=== PATIENT | male | born 1940 | race Caucasian/White ===

== ENCOUNTER 2017-08-22 08:19 | Outpatient (RCR) | payer MEDICARE, SELFPAY ==
[2017-08-22 09:30] VITALS: BP 145/73; PULSE 76; RESP 16; TEMP 36.1; BMI 30.4
--- NOTE | 2017-08-22 11:02 | PCM.WC.HP ---
(1) Decubitus ulcer of left buttock, stage 3 Status: Acute Current Visit: Yes Code(s): L89.323 - Pressure ulcer of left buttock, stage 3 (2) Anemia Status: Acute Current Visit: Yes Code(s): D64.9 - Anemia, unspecified (3) Diabetes type 2, uncontrolled Status: Acute Current Visit: Yes Code(s): E11.65 - Type 2 diabetes mellitus with hyperglycemia (4) Chronic diarrhea Status: Acute Current Visit: Yes Code(s): K52.9 - Noninfective gastroenteritis and colitis, unspecified (5) COPD (chronic obstructive pulmonary disease) Status: Acute Current Visit: Yes Code(s): J44.9 - Chronic obstructive pulmonary disease, unspecified (6) Dementia Status: Acute Current Visit: Yes Code(s): F03.90 - Unspecified dementia without behavioral disturbance History of Present Illness Date of Service: 08/22/17 Chief Complaint: Left buttocks ulcer History of Wound: The 7-year-old white male very hard of hearing diabetic with chronic diarrhea and incontinence developed a decubitus ulcer on his left buttocks cheek. Patient has been using a topical prescription antibiotic. Patient states 6 months it has been going on but saw the nurse practitioner primary care doctor 5 weeks ago. They have been trying for 3 months to get in to see someone that could take care of this ulcer. Patient walks but sits in his chair most of the day has a gel cushion but does not like it and is obese. Family prefers home health care if dressings need to be done daily. 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 anemia [place] with stents Allergies/Adverse Reactions: Allergies Penicillins [PCN] Allergy (Verified 08/22/17 09:46) Unknown Sulfa (Sulfonamide Antibiotics) Allergy (Verified 08/22/17 09:46) Unknown Home Medications: Ambulatory Orders Medication Instructions Recorded Carbidopa/Levodopa 25/100 [Sinemet] 1 tablet PO TIDAC 08/22/17 Clopidogrel Bisulfate [Plavix] 75 mg PO DAILY 08/22/17 Duloxetine HCl 20 mg PO BID 08/22/17 Furosemide [Lasix] 20 mg PO BIDLX 08/22/17 Glimepiride 1 mg PO BID 08/22/17 Insulin Glargine [Lantus (BKC)] 34 units SC QHS 08/22/17 Lisinopril [Zestril] 5 mg PO DAILY 08/22/17 Magnesium Oxide [Magnesium] 400 mg PO BID 08/22/17 Montelukast [Singulair] 10 mg PO DAILY 08/22/17 [place]-3 Fatty Acids/Fish Oil 1 each PO DAILY 08/22/17 [[place] 3 Fish Oil Softgel] Omeprazole [Prilosec] 20 mg PO DAILY 08/22/17 Simvastatin [Zocor] 40 mg PO QHS 08/22/17 Tamsulosin HCl [Flomax] 0.4 mg PO DAILY 08/22/17 Lives: Spouse/ Significant Other Smoking Status: Light Smoker (<10/day) Alcohol: Occasional Drugs: None Review of Systems Constitutional: Denies: Chills, Fever Eyes: Denies: Blurred vision, Drainage, Pain HEENT: Denies: Difficulty Hearing, Difficulty Swallowing, Sore Throat, Visual Changes Cardiovascular: Denies: Chest Pain, Palpitations, Syncope Respiratory: Denies: Cough, Shortness of Breath Gastrointestinal: Reports: Diarrhea. Denies: Abdominal Pain, Nausea, Vomiting Genitourinary: Denies: Dysuria, Frequency Musculoskeletal: Denies: Joint Pain, Muscle pain Skin: Reports: Wounds - Buttocks ulcer. Denies: Jaundice, Rash Neurological: Denies: Balance problems, Change in Speech, Difficulty swallowing, Focal weakness Psychiatric: Denies: Anxiety, Depression Endocrine: Denies: Change in Body Habitus Hematologic/ Lymphatic: Denies: Adenopathy - Physical Exam Vital Signs Temp Pulse Resp BP 96.9 F L 76 16 145/73 H 08/22/17 09:30 08/22/17 09:30 08/22/17 09:30 08/22/17 09:30 General: Oriented x3, Cooperative, Well developed HEENT: Atraumatic, PERRLA Oral: Moist Mucosa Neck: Supple, No JVD Lungs: Clear to auscultation, Normal air movement Cardiovascular: Regular rate, Regular Rhythm Abdomen: Bowel Sounds Present, Soft, Non Tender, No Hepato-splenomegaly, Obese Extremities: No clubbing, No edema Skin: Ulcer/ Wound - Buttocks ulcer stage III Wound Measurements and Assessment WC - Nurse 1 - General Ulcer Measurement Start: 08/22/17 08:38 Freq: Status: Active Protocol: Activity Type Activity Date Activity User E-Sign Co-Sign Detail Recorded Client Recorded Date Recorded By Document 08/22/17 09:30 [facility] [id number] 08/22/17 09:44 [facility] 08/22/17 09:30 Wound Center Nurse 1 [Ulcer Assessment] #1- RT BUTTOCK -Combined with other wound No -Current Size (cm) - Length 1.3 -Current Size (cm) - Width 0.8 -Current Size (cm) - Depth 0.1 -Total Square Cm 1.04 -Date of Last Picture (Recall this 08/22/17 field) -Photo Taken Yes -Epithelialization None Present -Tunneling No -Undermining/Tunneling No -Circular Undermining No -Exudate Amt None Present (0 %) -Wound Margin Distinct, Outline Attached -Granulation Amt Small (1-33%) -Granulation Quality [place] -Slough/Fibrin Yes -Necrosis Amt Medium (34-66%) -Necrotic Tissue Type Adherent Slough -Structure Exposed None/Limited to Skin Breakdown -Texture (Bev-wound Skin Appearance) Scarring -Moisture (Bev-wound Skin Appearance Assessed ) -Color (Bev-wound Skin Appearance) Erythema -Temperature (Bev-wound Skin No Abnormality Appearance) (Pt Warm) -Tenderness on Palpation (Bev-wound Yes Skin Appearance) -Ulcer Cleansing Rinsed/ Irrigated with Saline -Foul Odor after Cleansing No -Anesthetic Used 5% Lidocaine Gel WC - Nurse 2 - General Ulcer CM Notes Start: 08/22/17 08:38 Freq: Status: Active Protocol: Activity Type Activity Date Activity User E-Sign Co-Sign Detail Recorded Client Recorded Date Recorded By Document 08/22/17 10:17 [id number] 08/22/17 10:20 DV 08/22/17 10:17 Wound Center Nurse 2 [Procedure/Treatment] -Time 10:18 -Correct Patient Yes -Correct Side, Site, Position Yes -Correct Procedure Yes -Procedure Performed Yes -Type of Procedure Debridement -Clinical Debridement Subcutaneous -Post Debridement Size (cm) - Length 1.3 -Post Debridement Size (cm) - Width 1.0 -Post Debridement Size (cm) - Depth 0.3 -Total Square Cm 1.30 -Wound/Ulcer Outcome Not Healed -Ulcer Cleansing Rinsed/ Irrigated with Saline -Foul Odor after Cleansing No -Bioengineered Tissue No -Bleeding Controlled with Pressure -Treatment Response Procedure Tolerated Well [See Physician Procedure note for Specifics] Pain Scale: 0-10 Numeric [Pain] -Is Patient Pain Free? Yes Musculoskeletal: No Tenderness to Palpation of Joints or Extremities Lymphatic: No Cervical, Supraclavicular, or Inguinal Adenopathy Neurological: Cranial nerves II-XII grossly intact, Neuro grossly intact Psych/Mental Status: Normal Affect, Appropriate, Alert and oriented to time, place, person, mood and affect Debridement Note Post-Debridement Measurements/Treatment WC - Nurse 2 - General Ulcer CM Notes Start: 08/22/17 08:38 Freq: Status: Active Protocol: Activity Type Activity Date Activity User E-Sign Co-Sign Detail Recorded Client Recorded Date Recorded By Document 08/22/17 10:17 DV [id number] 08/22/17 10:20 DV 08/22/17 10:17 Wound Center Nurse 2 #1- RT BUTTOCK -Time 10:18 -Correct Patient Yes -Correct Side, Site, Position Yes -Correct Procedure Yes -Procedure Performed Yes -Type of Procedure Debridement -Clinical Debridement Subcutaneous -Post Debridement Size (cm) - Length 1.3 -Post Debridement Size (cm) - Width 1.0 -Post Debridement Size (cm) - Depth 0.3 -Total Square Cm 1.30 -Wound/Ulcer Outcome Not Healed -Ulcer Cleansing Rinsed/ Irrigated with Saline -Foul Odor after Cleansing No -Bioengineered Tissue No -Bleeding Controlled with Pressure -Treatment Response Procedure Tolerated Well Pain Scale: 0-10 Numeric Is Patient Pain Free? Yes Wound debrided: Buttocks ulcer Laterality: Left Wound Grade/Stage: Stage III Type of Debridement: Excisional debridement Anesthesia Used: 5% Lidocaine Gel Depth: Down to and including healthy tissue, in the subcutaneous layer Percentage of wound debrided: 100 Instrument Used: 5mm curette Tissue Removed: Cough and fibrin Severity: Limited To Skin Breakdown Amount of bleeding with debridement: Mild Bleeding Controlled with: Compression and gauze Patient tolerated procedure well Assessment/Plan Cultures for aerobic and anaerobic lab cmp and pralbumin already had a cbc done Active Problems Decubitus ulcer of left buttock, stage 3 (Acute) Anemia (Acute) Diabetes type 2, uncontrolled (Acute) Chronic diarrhea (Acute) COPD (chronic obstructive pulmonary disease) (Acute) Dementia (Acute) Assessment: Decubitus ulcers stage III left buttocks. Healing wound. Chronic diarrhea. Diabetes type 2 uncontrolled. Anemia. malnutrition Plan: wash the buttocks area with hibiclens. apply aquacell silver to the wound base moisten then cover with guaze and tape qd. Will calll with the results of the labs drawn today. Will order Home health shelter to do this for the family. transfer of care to Dr Hankins for furthercare
--- NOTE | 2017-08-22 11:14 | HP.PCM_ITS ---
(1) Decubitus ulcer of left buttock, stage 3 Status: Acute Current Visit: Yes Code(s): L89.323 - Pressure ulcer of left buttock, stage 3 (2) Anemia Status: Acute Current Visit: Yes Code(s): D64.9 - Anemia, unspecified (3) Diabetes type 2, uncontrolled Status: Acute Current Visit: Yes Code(s): E11.65 - Type 2 diabetes mellitus with hyperglycemia (4) Chronic diarrhea Status: Acute Current Visit: Yes Code(s): K52.9 - Noninfective gastroenteritis and colitis, unspecified (5) COPD (chronic obstructive pulmonary disease) Status: Acute Current Visit: Yes Code(s): J44.9 - Chronic obstructive pulmonary disease, unspecified (6) Dementia Status: Acute Current Visit: Yes Code(s): F03.90 - Unspecified dementia without behavioral disturbance History of Present Illness Date of Service: 08/22/17 Chief Complaint: Left buttocks ulcer History of Wound: The 7-year-old white male very hard of hearing diabetic with chronic diarrhea and incontinence developed a decubitus ulcer on his left buttocks cheek. Patient has been using a topical prescription antibiotic. Patient states 6 months it has been going on but saw the nurse practitioner primary care doctor 5 weeks ago. They have been trying for 3 months to get in to see someone that could take care of this ulcer. Patient walks but sits in his chair most of the day has a gel cushion but does not like it and is obese. Family prefers home health care if dressings need to be done daily. 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 anemia [place] with stents Allergies/Adverse Reactions: Allergies Penicillins [PCN] Allergy (Verified 08/22/17 09:46) Unknown Sulfa (Sulfonamide Antibiotics) Allergy (Verified 08/22/17 09:46) Unknown Home Medications: Ambulatory Orders Medication Instructions Recorded Carbidopa/Levodopa 25/100 [Sinemet] 1 tablet PO TIDAC 08/22/17 Clopidogrel Bisulfate [Plavix] 75 mg PO DAILY 08/22/17 Duloxetine HCl 20 mg PO BID 08/22/17 Furosemide [Lasix] 20 mg PO BIDLX 08/22/17 Glimepiride 1 mg PO BID 08/22/17 Insulin Glargine [Lantus (BKC)] 34 units SC QHS 08/22/17 Lisinopril [Zestril] 5 mg PO DAILY 08/22/17 Magnesium Oxide [Magnesium] 400 mg PO BID 08/22/17 Montelukast [Singulair] 10 mg PO DAILY 08/22/17 [place]-3 Fatty Acids/Fish Oil 1 each PO DAILY 08/22/17 [[place] 3 Fish Oil Softgel] Omeprazole [Prilosec] 20 mg PO DAILY 08/22/17 Simvastatin [Zocor] 40 mg PO QHS 08/22/17 Tamsulosin HCl [Flomax] 0.4 mg PO DAILY 08/22/17 Lives: Spouse/ Significant Other Smoking Status: Light Smoker (<10/day) Alcohol: Occasional Drugs: None Review of Systems Constitutional: Denies: Chills, Fever Eyes: Denies: Blurred vision, Drainage, Pain HEENT: Denies: Difficulty Hearing, Difficulty Swallowing, Sore Throat, Visual Changes Cardiovascular: Denies: Chest Pain, Palpitations, Syncope Respiratory: Denies: Cough, Shortness of Breath Gastrointestinal: Reports: Diarrhea. Denies: Abdominal Pain, Nausea, Vomiting Genitourinary: Denies: Dysuria, Frequency Musculoskeletal: Denies: Joint Pain, Muscle pain Skin: Reports: Wounds - Buttocks ulcer. Denies: Jaundice, Rash Neurological: Denies: Balance problems, Change in Speech, Difficulty swallowing , Focal weakness Psychiatric: Denies: Anxiety, Depression Endocrine: Denies: Change in Body Habitus Hematologic/ Lymphatic: Denies: Adenopathy - Physical Exam Vital Signs Temp Pulse Resp BP 96.9 F L 76 16 145/73 H 08/22/17 09:30 08/22/17 09:30 08/22/17 09:30 08/22/17 09:30 General: Oriented x3, Cooperative, Well developed HEENT: Atraumatic, PERRLA Oral: Moist Mucosa Neck: Supple, No JVD Lungs: Clear to auscultation, Normal air movement Cardiovascular: Regular rate, Regular Rhythm Abdomen: Bowel Sounds Present, Soft, Non Tender, No Hepato-splenomegaly, Obese Extremities: No clubbing, No edema Skin: Ulcer/ Wound - Buttocks ulcer stage III Wound Measurements and Assessment WC - Nurse 1 - General Ulcer Measurement Start: 08/22/17 08:38 Freq: Status: Active Protocol: Activity Type Activity Date Activity User E-Sign Co-Sign Detail Recorded Client Recorded Date Recorded By Document 08/22/17 09:30 [facility] [id number] 08/22/17 09:44 [facility] 08/22/17 09:30 Wound Center Nurse 1 [Ulcer Assessment] #1- RT BUTTOCK -Combined with other wound No -Current Size (cm) - Length 1.3 -Current Size (cm) - Width 0.8 -Current Size (cm) - Depth 0.1 -Total Square Cm 1.04 -Date of Last Picture (Recall this 08/22/17 field) -Photo Taken Yes -Epithelialization None Present -Tunneling No -Undermining/Tunneling No -Circular Undermining No -Exudate Amt None Present (0 %) -Wound Margin Distinct, Outline Attached -Granulation Amt Small (1-33%) -Granulation Quality [place] -Slough/Fibrin Yes -Necrosis Amt Medium (34-66%) -Necrotic Tissue Type Adherent Slough -Structure Exposed None/Limited to Skin Breakdown -Texture (Bev-wound Skin Appearance) Scarring -Moisture (Bev-wound Skin Appearance Assessed ) -Color (Bev-wound Skin Appearance) Erythema -Temperature (Bev-wound Skin No Abnormality Appearance) (Pt Warm) -Tenderness on Palpation (Bev-wound Yes Skin Appearance) -Ulcer Cleansing Rinsed/ Irrigated with Saline -Foul Odor after Cleansing No -Anesthetic Used 5% Lidocaine Gel WC - Nurse 2 - General Ulcer CM Notes Start: 08/22/17 08:38 Freq: Status: Active Protocol: Activity Type Activity Date Activity User E-Sign Co-Sign Detail Recorded Client Recorded Date Recorded By Document 08/22/17 10:17 [id number] 08/22/17 10:20 DV 08/22/17 10:17 Wound Center Nurse 2 [Procedure/Treatment] -Time 10:18 -Correct Patient Yes -Correct Side, Site, Position Yes -Correct Procedure Yes -Procedure Performed Yes -Type of Procedure Debridement -Clinical Debridement Subcutaneous -Post Debridement Size (cm) - Length 1.3 -Post Debridement Size (cm) - Width 1.0 -Post Debridement Size (cm) - Depth 0.3 -Total Square Cm 1.30 -Wound/Ulcer Outcome Not Healed -Ulcer Cleansing Rinsed/ Irrigated with Saline -Foul Odor after Cleansing No -Bioengineered Tissue No -Bleeding Controlled with Pressure -Treatment Response Procedure Tolerated Well [See Physician Procedure note for Specifics] Pain Scale: 0-10 Numeric [Pain] -Is Patient Pain Free? Yes Musculoskeletal: No Tenderness to Palpation of Joints or Extremities Lymphatic: No Cervical, Supraclavicular, or Inguinal Adenopathy Neurological: Cranial nerves II-XII grossly intact, Neuro grossly intact Psych/Mental Status: Normal Affect, Appropriate, Alert and oriented to time, place, person, mood and affect Debridement Note Post-Debridement Measurements/Treatment WC - Nurse 2 - General Ulcer CM Notes Start: 08/22/17 08:38 Freq: Status: Active Protocol: Activity Type Activity Date Activity User E-Sign Co-Sign Detail Recorded Client Recorded Date Recorded By Document 08/22/17 10:17 DV [id number] 08/22/17 10:20 DV 08/22/17 10:17 Wound Center Nurse 2 #1- RT BUTTOCK -Time 10:18 -Correct Patient Yes -Correct Side, Site, Position Yes -Correct Procedure Yes -Procedure Performed Yes -Type of Procedure Debridement -Clinical Debridement Subcutaneous -Post Debridement Size (cm) - Length 1.3 -Post Debridement Size (cm) - Width 1.0 -Post Debridement Size (cm) - Depth 0.3 -Total Square Cm 1.30 -Wound/Ulcer Outcome Not Healed -Ulcer Cleansing Rinsed/ Irrigated with Saline -Foul Odor after Cleansing No -Bioengineered Tissue No -Bleeding Controlled with Pressure -Treatment Response Procedure Tolerated Well Pain Scale: 0-10 Numeric Is Patient Pain Free? Yes Wound debrided: Buttocks ulcer Laterality: Left Wound Grade/Stage: Stage III Type of Debridement: Excisional debridement Anesthesia Used: 5% Lidocaine Gel Depth: Down to and including healthy tissue, in the subcutaneous layer Percentage of wound debrided: 100 Instrument Used: 5mm curette Tissue Removed: Cough and fibrin Severity: Limited To Skin Breakdown Amount of bleeding with debridement: Mild Bleeding Controlled with: Compression and gauze Patient tolerated procedure well Assessment/Plan Cultures for aerobic and anaerobic lab cmp and pralbumin already had a cbc done Active Problems Decubitus ulcer of left buttock, stage 3 (Acute) Anemia (Acute) Diabetes type 2, uncontrolled (Acute) Chronic diarrhea (Acute) COPD (chronic obstructive pulmonary disease) (Acute) Dementia (Acute) Assessment: Decubitus ulcers stage III left buttocks. Healing wound. Chronic diarrhea. Diabetes type 2 uncontrolled. Anemia. malnutrition Plan: wash the buttocks area with hibiclens. apply aquacell silver to the wound base moisten then cover with guaze and tape qd. Will calll with the results of the labs drawn today. Will order Home health custodial to do this for the family. transfer of care to Dr Hankins for furthercare
[2017-08-22 12:15] LABS: ALB/GLOB Ratio 0.8 RATIO (0.9-2.4); AST(SGOT) 19 U/L (15-37); Alanine Aminotransfer ALT/SGPT 21 U/L (16-61); Albumin, Serum 3.6 g/dL (3.2-5.0); Alkaline Phosphatase 69 U/L (45-117); Anion Gap 8 (5-15); BUN 22 mg/dL (7-18); BUN/Creat Ratio 14.5 RATIO (10-20); Calcium,Total 8.6 mg/dL (8.5-10.1); Chloride 99 mmol/L (98-107); Creatinine, Serum 1.52 mg/dL (0.70-1.30); EST Glomerular Filtration Rate 48 mL/min (>60); Est Glom Filt Rate - Afr Amer 58 mL/min (>60); Globulin 4.5 g/dL (2.2-4.2); Glucose 103 mg/dL (74-106); Potassium 4.3 mmol/L (3.5-5.1); Prealbumin 23.7 mg/dL (20.0-40.0); Protein, Total 8.1 g/dL (6.4-8.2); Sodium Level 136 mmol/L (136-145)
== END 2017-08-28 23:59 ==
LOC: WC 08:19
PROVIDERS: Family Provider Nurse Practitioner Family; PCP Nurse Practitioner Family; Visit Provider Nurse Practitioner
DX: L89.323 Pressure ulcer of left buttock, stage 3 (principal); D64.9 Anemia, unspecified; E46 Unspecified protein-calorie malnutrition; E11.65 Type 2 diabetes mellitus with hyperglycemia; J44.9 Chronic obstructive pulmonary disease, unspecified; K52.9 Noninfective gastroenteritis and colitis, unspecified; F03.90 Unspecified dementia, unspecified severity, without behavioral disturbance, psychotic disturbance, mood disturbance, and anxiety; Z79.4 Long term (current) use of insulin; F17.200 Nicotine dependence, unspecified, uncomplicated
CPT/HCPCS: 11042; 36415; 80053; 84134; 87070; 87075; 87205; 99203; G0463

== ENCOUNTER 2017-09-12 14:30 | Outpatient (RCR) | payer MEDICARE, SELFPAY ==
[2017-08-29 01:17] VITALS: BP 145/73; PULSE 76; RESP 16; TEMP 36.1
[2017-08-29 15:50] VITALS: BP 120/61; PULSE 80; RESP 18; TEMP 36.2
--- NOTE | 2017-08-29 18:48 | PCM.WC.HP ---
(1) Hearing deficit Status: Chronic Current Visit: Yes Qualifiers: Laterality: bilateral Qualified Code(s): H91.93 - Unspecified hearing loss, bilateral Code(s): H91.90 - Unspecified hearing loss, unspecified ear (2) Anemia Status: Chronic Current Visit: Yes Qualifiers: Anemia type: unspecified type Qualified Code(s): D64.9 - Anemia, unspecified Code(s): D64.9 - Anemia, unspecified (3) Diabetes type 2, uncontrolled Status: Chronic Current Visit: Yes Qualifiers: Diabetes mellitus prison insulin use: with intermediate teacher use Diabetes mellitus complication status: with unspecified complications Qualified Code(s): E11.8 - Type 2 diabetes mellitus with unspecified complications; E11.65 - Type 2 diabetes mellitus with hyperglycemia; Z79.4 - termite technician (current) use of insulin Code(s): E11.65 - Type 2 diabetes mellitus with hyperglycemia (4) COPD (chronic obstructive pulmonary disease) Status: Chronic Current Visit: Yes Qualifiers: COPD type: unspecified COPD Qualified Code(s): J44.9 - Chronic obstructive pulmonary disease, unspecified Code(s): J44.9 - Chronic obstructive pulmonary disease, unspecified (5) Dementia Status: Chronic Current Visit: Yes Qualifiers: Dementia type: Parkinson's disease Code(s): F03.90 - Unspecified dementia without behavioral disturbance (6) Pressure ulcer of left buttock, stage 3 Status: Chronic Current Visit: Yes Code(s): L89.323 - Pressure ulcer of left buttock, stage 3 History of Present Illness Date of Service: 08/29/17 Chief Complaint: Left buttocks ulcer History of Wound: Amador is a 77-year-old white male who is very, very hard of hearing who is diabetic with chronic diarrhea and incontinence and developed a decubitus ulcer on his left buttocks cheek. Patient has been using a topical prescription antibiotic. Patient states 6 months it has been going on but saw the nurse practitioner primary care doctor 5 weeks ago. They have been trying for 3 months to get in to see someone that could take care of this ulcer. Patient walks but sits in his chair most of the day has a gel cushion but does not like it and is obese. Family prefers home health care if dressings need to be done daily. He is accompanied by his girlfriend/caregiver today. Home Health did not contact them and she has been doing the dressings that were prescribed at his last visit. They deny any increased pain, drainage or bleeding. He has tried to be more aware and take pressure off of the area. Past Medical History Past Medical History: Chronic Problems Anemia (Chronic) Diabetes type 2, uncontrolled (Chronic) COPD (chronic obstructive pulmonary disease) (Chronic) Dementia (Chronic) Hearing deficit (Chronic) Pressure ulcer of left buttock, stage 3 (Chronic) Allergies/Adverse Reactions: Allergies Penicillins [PCN] Allergy (Verified 08/22/17 09:46) Unknown Sulfa (Sulfonamide Antibiotics) Allergy (Verified 08/22/17 09:46) Unknown Home Medications: Ambulatory Orders Medication Instructions Recorded Carbidopa/Levodopa 25/100 [Sinemet] 1 tablet PO TIDAC 08/22/17 Clopidogrel Bisulfate [Plavix] 75 mg PO DAILY 08/22/17 Duloxetine HCl 20 mg PO BID 08/22/17 Furosemide [Lasix] 20 mg PO BIDLX 08/22/17 Glimepiride 1 mg PO BID 08/22/17 Insulin Glargine [Lantus (BKC)] 34 units SC QHS 08/22/17 Lisinopril [Zestril] 5 mg PO DAILY 08/22/17 Magnesium Oxide [Magnesium] 400 mg PO BID 08/22/17 Montelukast [Singulair] 10 mg PO DAILY 08/22/17 [place]-3 Fatty Acids/Fish Oil 1 each PO DAILY 08/22/17 [[place] 3 Fish Oil Softgel] Omeprazole [Prilosec] 20 mg PO DAILY 08/22/17 Simvastatin [Zocor] 40 mg PO QHS 08/22/17 Tamsulosin HCl [Flomax] 0.4 mg PO DAILY 08/22/17 - Family History Maternal No pertinent history Paternal No pertinent history Lives: Spouse/ Significant Other Smoking Status: Light Smoker (<10/day) Alcohol: None Drugs: None Review of Systems Constitutional: Denies: Chills, Fever, Weight Change Eyes: Denies: Pain, Vision Change HEENT: Reports: Difficulty Hearing Cardiovascular: Denies: Chest Pain, Palpitations Respiratory: Denies: Cough, Shortness of Breath Gastrointestinal: Reports: Diarrhea. Denies: Nausea, Vomiting Genitourinary: Reports: Incontinence. Denies: Dysuria, Hematuria Skin: Reports: Wounds Endocrine: Denies: Heat/ Cold Intolerance, Polydipsia, Polyuria Hematologic/ Lymphatic: Reports: Anemia. Denies: Easy Bruising, Easy Bleeding - Physical Exam Vital Signs Temp Pulse Resp BP 97.1 F L 80 18 120/61 08/29/17 15:50 08/29/17 15:50 08/29/17 15:50 08/29/17 15:50 General: Alert, Oriented x3, Cooperative, No apparent distress HEENT: Atraumatic, Normocephalic Oral: Moist Mucosa Neck: Supple, No JVD, Negative Carotid Bruits Lungs: Clear to auscultation Cardiovascular: Regular rate, Regular Rhythm Abdomen: Soft, Non Tender, Obese Skin: Ulcer/ Wound Wound Measurements and Assessment WC - Nurse 1 - General Ulcer Measurement Start: 08/29/17 15:50 Freq: Status: Active Protocol: Activity Type Activity Date Activity User E-Sign Co-Sign Detail Recorded Client Recorded Date Recorded By Document 08/29/17 15:50 [facility] [id number] 08/29/17 15:54 [facility] 08/29/17 15:50 Wound Center Nurse 1 [Ulcer Assessment] #1- RT BUTTOCK -Current Size (cm) - Length 1.3 -Current Size (cm) - Width 0.6 -Current Size (cm) - Depth 0.1 -Total Square Cm 0.78 -Photo Taken No -Exudate Amt None Present (0 %) -Wound Margin Flat & Intact -Granulation Amt Small (1-33%) -Granulation Quality [place] -Necrosis Amt Large (67-100%) -Necrotic Tissue Type Adherent Slough -Structure Exposed N/A -Texture (Bev-wound Skin Appearance) Scarring -Moisture (Bev-wound Skin Appearance Dry/Scaly ) -Color (Bev-wound Skin Appearance) Rubor -Temperature (Bev-wound Skin No Abnormality Appearance) (Pt Warm) -Ulcer Cleansing Rinsed/ Irrigated with Saline -Foul Odor after Cleansing No -Anesthetic Used 4% Lidocaine Solution WC - Nurse 2 - General Ulcer CM Notes Start: 08/29/17 15:50 Freq: Status: Active Protocol: Activity Type Activity Date Activity User E-Sign Co-Sign Detail Recorded Client Recorded Date Recorded By Document 08/29/17 16:55 [id number] 08/29/17 16:56 08/29/17 16:55 Wound Center Nurse 2 [Procedure/Treatment] -Time 16:56 -Correct Patient Yes -Correct Side, Site, Position Yes -Correct Procedure Yes -Procedure Performed Yes -Type of Procedure Debridement -Clinical Debridement Subcutaneous -Post Debridement Size (cm) - Length 1.0 -Post Debridement Size (cm) - Width 0.5 -Post Debridement Size (cm) - Depth 0.2 -Total Square Cm 0.50 -Wound/Ulcer Outcome Not Healed -Ulcer Cleansing Rinsed/ Irrigated with Saline -Foul Odor after Cleansing No -Bioengineered Tissue No -Topical Lidocaine (%) 4 -Lidocaine (ml) 5 -Bleeding Controlled with NA -Treatment Response Procedure Tolerated Well [See Physician Procedure note for Specifics] Pain Scale: 0-10 Numeric [Pain] -Is Patient Pain Free? Yes Psych/Mental Status: Normal Affect, Appropriate Debridement Note Post-Debridement Measurements/Treatment WC - Nurse 2 - General Ulcer CM Notes Start: 08/29/17 15:50 Freq: Status: Active Protocol: Activity Type Activity Date Activity User E-Sign Co-Sign Detail Recorded Client Recorded Date Recorded By Document 08/29/17 16:55 [id number] 08/29/17 16:56 08/29/17 16:55 Wound Center Nurse 2 #1- RT BUTTOCK -Time 16:56 -Correct Patient Yes -Correct Side, Site, Position Yes -Correct Procedure Yes -Procedure Performed Yes -Type of Procedure Debridement -Clinical Debridement Subcutaneous -Post Debridement Size (cm) - Length 1.0 -Post Debridement Size (cm) - Width 0.5 -Post Debridement Size (cm) - Depth 0.2 -Total Square Cm 0.50 -Wound/Ulcer Outcome Not Healed -Ulcer Cleansing Rinsed/ Irrigated with Saline -Foul Odor after Cleansing No -Bioengineered Tissue No -Topical Lidocaine (%) 4 -Lidocaine (ml) 5 -Bleeding Controlled with NA -Treatment Response Procedure Tolerated Well Pain Scale: 0-10 Numeric Is Patient Pain Free? Yes WOUND is located on LEFT BUttock - NOT right buttock. MARTINEZ Wound debrided: LEFT buttock Laterality: Left Wound Grade/Stage: Stage III Type of Debridement: Excisional debridement Anesthesia Used: 4% Lidocaine Solution Depth: Down to and including healthy tissue, in the subcutaneous layer Percentage of wound debrided: 100 Instrument Used: 5mm curette Tissue Removed: yellow slough and devitalized tissue Severity: Fat Layer Exposed Amount of bleeding with debridement: Mild Bleeding Controlled with: Compression and gauze Patient tolerated procedure well Assessment/Plan Active Problems Anemia (Chronic) Diabetes type 2, uncontrolled (Chronic) COPD (chronic obstructive pulmonary disease) (Chronic) Dementia (Chronic) Hearing deficit (Chronic) Pressure ulcer of left buttock, stage 3 (Chronic) Assessment: Decubitus ulcers stage III right buttocks. Healing wound. Chronic diarrhea. Diabetes type 2 uncontrolled. Anemia. malnutrition Plan: Amador's wounds were evaluated and debrided today. His wound has improved in size/depth. Will continue to apply aquacel silver to the wound base, moisten and then cover with gauze and tape daily. His caregiver will perform dressing changes on the days that Home Health is unable to do dressings. Home Health will be consulted again. F/U in 1 week.
--- NOTE | 2017-08-29 19:00 | HP.PCM_ITS ---
(1) Hearing deficit Status: Chronic Current Visit: Yes Qualifiers: Laterality: bilateral Qualified Code(s): H91.93 - Unspecified hearing loss , bilateral Code(s): H91.90 - Unspecified hearing loss, unspecified ear (2) Anemia Status: Chronic Current Visit: Yes Qualifiers: Anemia type: unspecified type Qualified Code(s): D64.9 - Anemia, unspecified Code(s): D64.9 - Anemia, unspecified (3) Diabetes type 2, uncontrolled Status: Chronic Current Visit: Yes Qualifiers: Diabetes mellitus [facility] insulin use: with oil heaterman use Diabetes mellitus complication status: with unspecified complications Qualified Code(s) : E11.8 - Type 2 diabetes mellitus with unspecified complications; E11.65 - Type 2 diabetes mellitus with hyperglycemia; Z79.4 - long term (current) use of insulin Code(s): E11.65 - Type 2 diabetes mellitus with hyperglycemia (4) COPD (chronic obstructive pulmonary disease) Status: Chronic Current Visit: Yes Qualifiers: COPD type: unspecified COPD Qualified Code(s): J44.9 - Chronic obstructive pulmonary disease, unspecified Code(s): J44.9 - Chronic obstructive pulmonary disease, unspecified (5) Dementia Status: Chronic Current Visit: Yes Qualifiers: Dementia type: Parkinson's disease Code(s): F03.90 - Unspecified dementia without behavioral disturbance (6) Pressure ulcer of left buttock, stage 3 Status: Chronic Current Visit: Yes Code(s): L89.323 - Pressure ulcer of left buttock, stage 3 History of Present Illness Date of Service: 08/29/17 Chief Complaint: Left buttocks ulcer History of Wound: Amador is a 77-year-old white male who is very, very hard of hearing who is diabetic with chronic diarrhea and incontinence and developed a decubitus ulcer on his left buttocks cheek. Patient has been using a topical prescription antibiotic. Patient states 6 months it has been going on but saw the nurse practitioner primary care doctor 5 weeks ago. They have been trying for 3 months to get in to see someone that could take care of this ulcer. Patient walks but sits in his chair most of the day has a gel cushion but does not like it and is obese. Family prefers home health care if dressings need to be done daily. He is accompanied by his girlfriend/caregiver today. Home Health did not contact them and she has been doing the dressings that were prescribed at his last visit. They deny any increased pain, drainage or bleeding. He has tried to be more aware and take pressure off of the area. Past Medical History Past Medical History: Chronic Problems Anemia (Chronic) Diabetes type 2, uncontrolled (Chronic) COPD (chronic obstructive pulmonary disease) (Chronic) Dementia (Chronic) Hearing deficit (Chronic) Pressure ulcer of left buttock, stage 3 (Chronic) Allergies/Adverse Reactions: Allergies Penicillins [PCN] Allergy (Verified 08/22/17 09:46) Unknown Sulfa (Sulfonamide Antibiotics) Allergy (Verified 08/22/17 09:46) Unknown Home Medications: Ambulatory Orders Medication Instructions Recorded Carbidopa/Levodopa 25/100 [Sinemet] 1 tablet PO TIDAC 08/22/17 Clopidogrel Bisulfate [Plavix] 75 mg PO DAILY 08/22/17 Duloxetine HCl 20 mg PO BID 08/22/17 Furosemide [Lasix] 20 mg PO BIDLX 08/22/17 Glimepiride 1 mg PO BID 08/22/17 Insulin Glargine [Lantus (BKC)] 34 units SC QHS 08/22/17 Lisinopril [Zestril] 5 mg PO DAILY 08/22/17 Magnesium Oxide [Magnesium] 400 mg PO BID 08/22/17 Montelukast [Singulair] 10 mg PO DAILY 08/22/17 [place]-3 Fatty Acids/Fish Oil 1 each PO DAILY 08/22/17 [[place] 3 Fish Oil Softgel] Omeprazole [Prilosec] 20 mg PO DAILY 08/22/17 Simvastatin [Zocor] 40 mg PO QHS 08/22/17 Tamsulosin HCl [Flomax] 0.4 mg PO DAILY 08/22/17 - Family History Maternal No pertinent history Paternal No pertinent history Lives: Spouse/ Significant Other Smoking Status: Light Smoker (<10/day) Alcohol: None Drugs: None Review of Systems Constitutional: Denies: Chills, Fever, Weight Change Eyes: Denies: Pain, Vision Change HEENT: Reports: Difficulty Hearing Cardiovascular: Denies: Chest Pain, Palpitations Respiratory: Denies: Cough, Shortness of Breath Gastrointestinal: Reports: Diarrhea. Denies: Nausea, Vomiting Genitourinary: Reports: Incontinence. Denies: Dysuria, Hematuria Skin: Reports: Wounds Endocrine: Denies: Heat/ Cold Intolerance, Polydipsia, Polyuria Hematologic/ Lymphatic: Reports: Anemia. Denies: Easy Bruising, Easy Bleeding - Physical Exam Vital Signs Temp Pulse Resp BP 97.1 F L 80 18 120/61 08/29/17 15:50 08/29/17 15:50 08/29/17 15:50 08/29/17 15:50 General: Alert, Oriented x3, Cooperative, No apparent distress HEENT: Atraumatic, Normocephalic Oral: Moist Mucosa Neck: Supple, No JVD, Negative Carotid Bruits Lungs: Clear to auscultation Cardiovascular: Regular rate, Regular Rhythm Abdomen: Soft, Non Tender, Obese Skin: Ulcer/ Wound Wound Measurements and Assessment WC - Nurse 1 - General Ulcer Measurement Start: 08/29/17 15:50 Freq: Status: Active Protocol: Activity Type Activity Date Activity User E-Sign Co-Sign Detail Recorded Client Recorded Date Recorded By Document 08/29/17 15:50 [facility] [id number] 08/29/17 15:54 [facility] 08/29/17 15:50 Wound Center Nurse 1 [Ulcer Assessment] #1- RT BUTTOCK -Current Size (cm) - Length 1.3 -Current Size (cm) - Width 0.6 -Current Size (cm) - Depth 0.1 -Total Square Cm 0.78 -Photo Taken No -Exudate Amt None Present (0 %) -Wound Margin Flat & Intact -Granulation Amt Small (1-33%) -Granulation Quality [place] -Necrosis Amt Large (67-100%) -Necrotic Tissue Type Adherent Slough -Structure Exposed N/A -Texture (Bev-wound Skin Appearance) Scarring -Moisture (Bev-wound Skin Appearance Dry/Scaly ) -Color (Bev-wound Skin Appearance) Rubor -Temperature (Bev-wound Skin No Abnormality Appearance) (Pt Warm) -Ulcer Cleansing Rinsed/ Irrigated with Saline -Foul Odor after Cleansing No -Anesthetic Used 4% Lidocaine Solution WC - Nurse 2 - General Ulcer CM Notes Start: 08/29/17 15:50 Freq: Status: Active Protocol: Activity Type Activity Date Activity User E-Sign Co-Sign Detail Recorded Client Recorded Date Recorded By Document 08/29/17 16:55 [id number] 08/29/17 16:56 08/29/17 16:55 Wound Center Nurse 2 [Procedure/Treatment] -Time 16:56 -Correct Patient Yes -Correct Side, Site, Position Yes -Correct Procedure Yes -Procedure Performed Yes -Type of Procedure Debridement -Clinical Debridement Subcutaneous -Post Debridement Size (cm) - Length 1.0 -Post Debridement Size (cm) - Width 0.5 -Post Debridement Size (cm) - Depth 0.2 -Total Square Cm 0.50 -Wound/Ulcer Outcome Not Healed -Ulcer Cleansing Rinsed/ Irrigated with Saline -Foul Odor after Cleansing No -Bioengineered Tissue No -Topical Lidocaine (%) 4 -Lidocaine (ml) 5 -Bleeding Controlled with NA -Treatment Response Procedure Tolerated Well [See Physician Procedure note for Specifics] Pain Scale: 0-10 Numeric [Pain] -Is Patient Pain Free? Yes Psych/Mental Status: Normal Affect, Appropriate Debridement Note Post-Debridement Measurements/Treatment WC - Nurse 2 - General Ulcer CM Notes Start: 08/29/17 15:50 Freq: Status: Active Protocol: Activity Type Activity Date Activity User E-Sign Co-Sign Detail Recorded Client Recorded Date Recorded By Document 08/29/17 16:55 [id number] 08/29/17 16:56 08/29/17 16:55 Wound Center Nurse 2 #1- RT BUTTOCK -Time 16:56 -Correct Patient Yes -Correct Side, Site, Position Yes -Correct Procedure Yes -Procedure Performed Yes -Type of Procedure Debridement -Clinical Debridement Subcutaneous -Post Debridement Size (cm) - Length 1.0 -Post Debridement Size (cm) - Width 0.5 -Post Debridement Size (cm) - Depth 0.2 -Total Square Cm 0.50 -Wound/Ulcer Outcome Not Healed -Ulcer Cleansing Rinsed/ Irrigated with Saline -Foul Odor after Cleansing No -Bioengineered Tissue No -Topical Lidocaine (%) 4 -Lidocaine (ml) 5 -Bleeding Controlled with NA -Treatment Response Procedure Tolerated Well Pain Scale: 0-10 Numeric Is Patient Pain Free? Yes WOUND is located on LEFT BUttock - NOT right buttock. MARTINEZ Wound debrided: LEFT buttock Laterality: Left Wound Grade/Stage: Stage III Type of Debridement: Excisional debridement Anesthesia Used: 4% Lidocaine Solution Depth: Down to and including healthy tissue, in the subcutaneous layer Percentage of wound debrided: 100 Instrument Used: 5mm curette Tissue Removed: yellow slough and devitalized tissue Severity: Fat Layer Exposed Amount of bleeding with debridement: Mild Bleeding Controlled with: Compression and gauze Patient tolerated procedure well Assessment/Plan Active Problems Anemia (Chronic) Diabetes type 2, uncontrolled (Chronic) COPD (chronic obstructive pulmonary disease) (Chronic) Dementia (Chronic) Hearing deficit (Chronic) Pressure ulcer of left buttock, stage 3 (Chronic) Assessment: Decubitus ulcers stage III right buttocks. Healing wound. Chronic diarrhea. Diabetes type 2 uncontrolled. Anemia. malnutrition Plan: Amador's wounds were evaluated and debrided today. His wound has improved in size/depth. Will continue to apply aquacel silver to the wound base, moisten and then cover with gauze and tape daily. His caregiver will perform dressing changes on the days that Home Health is unable to do dressings. Home Health will be consulted again. F/U in 1 week.
[2017-09-12 14:41] VITALS: BP 134/71; PULSE 79; RESP 16; TEMP 35.9
--- NOTE | 2017-09-12 21:50 | PCM.WC.PN ---
(1) Hearing deficit Status: Chronic Current Visit: Yes Qualifiers: Laterality: bilateral Qualified Code(s): H91.93 - Unspecified hearing loss, bilateral Code(s): H91.90 - Unspecified hearing loss, unspecified ear (2) Anemia Status: Chronic Current Visit: Yes Qualifiers: Anemia type: unspecified type Qualified Code(s): D64.9 - Anemia, unspecified Code(s): D64.9 - Anemia, unspecified (3) Diabetes type 2, uncontrolled Status: Chronic Current Visit: Yes Qualifiers: Diabetes mellitus care home insulin use: with oysterman use Diabetes mellitus complication status: with unspecified complications Qualified Code(s): E11.8 - Type 2 diabetes mellitus with unspecified complications; E11.65 - Type 2 diabetes mellitus with hyperglycemia; Z79.4 - joint terminal attack controller (current) use of insulin Code(s): E11.65 - Type 2 diabetes mellitus with hyperglycemia (4) COPD (chronic obstructive pulmonary disease) Status: Chronic Current Visit: Yes Qualifiers: COPD type: unspecified COPD Qualified Code(s): J44.9 - Chronic obstructive pulmonary disease, unspecified Code(s): J44.9 - Chronic obstructive pulmonary disease, unspecified (5) Dementia Status: Chronic Current Visit: Yes Qualifiers: Dementia type: Parkinson's disease Code(s): F03.90 - Unspecified dementia without behavioral disturbance (6) Pressure ulcer of left buttock, stage 3 Status: Chronic Current Visit: Yes Code(s): L89.323 - Pressure ulcer of left buttock, stage 3 Type of Wound Date of Service: 09/12/17 Chief Complaint: Left buttocks ulcer History of Wound: Amador is a 77-year-old white male who is very, very hard of hearing who is diabetic with chronic diarrhea and incontinence and developed a decubitus ulcer on his left buttocks cheek. Patient has been using a topical prescription antibiotic. Patient states 6 months it has been going on but saw the nurse practitioner primary care doctor 5 weeks ago. They have been trying for 3 months to get in to see someone that could take care of this ulcer. Patient walks but sits in his chair most of the day has a gel cushion but does not like it and is obese. Family prefers home health care if dressings need to be done daily. He is accompanied by his girlfriend/caregiver today. Progress of Wound: Ced has tolerated the dressings and his wound is healed today. He is using his gel cushion in both his wheelchair and recliner and is trying to get up more frequently. He is still having bowel issues but they are in the process on trying to take care of those issues. - Physical Exam Vital Signs Temp Pulse Resp BP 96.6 F L 79 16 134/71 H 09/12/17 14:41 09/12/17 14:41 09/12/17 14:41 09/12/17 14:41 General: Alert, Oriented x3, Cooperative, No apparent distress HEENT: Atraumatic, Normocephalic Oral: Moist Mucosa Abdomen: Obese Skin: Ulcer/ Wound Wound Measurements and Assessment WC - Nurse 1 - General Ulcer Measurement Start: 08/29/17 15:50 Freq: Status: Active Protocol: Activity Type Activity Date Activity User E-Sign Co-Sign Detail Recorded Client Recorded Date Recorded By Document 09/12/17 14:41 [id number] 09/12/17 14:45 09/12/17 14:41 Wound Center Nurse 1 [Ulcer Assessment] #1- RT BUTTOCK -Combined with other wound No -Current Size (cm) - Length 0 -Current Size (cm) - Width 0 -Current Size (cm) - Depth 0 -Total Square Cm 0 -Date of Last Picture (Recall this 09/12/17 field) -Photo Taken Yes -Epithelialization Large 67-100% -Exudate Amt None Present (0 %) -Wound Margin Flat & Intact -Granulation Amt Large (67-100%) -Granulation Quality [place] -Slough/Fibrin No -Necrosis Amt None Present (0 %) -Structure Exposed N/A -Texture (Bev-wound Skin Appearance) No Abnormality Assessed -Moisture (Bev-wound Skin Appearance No Abnormality ) Assessed -Color (Bev-wound Skin Appearance) No Abnormality Assessed -Temperature (Bev-wound Skin No Abnormality Appearance) (Pt Warm) -Tenderness on Palpation (Bev-wound No Skin Appearance) -Ulcer Cleansing Rinsed/ Irrigated with Saline -Foul Odor after Cleansing No [Edema Assessment] -Lower Limb Edema Present NA Psych/Mental Status: Normal Affect, Appropriate Debridement Note Post-Debridement Measurements/Treatment WC - Nurse 2 - General Ulcer CM Notes Start: 08/29/17 15:50 Freq: Status: Active Protocol: Activity Type Activity Date Activity User E-Sign Co-Sign Detail Recorded Client Recorded Date Recorded By Document 08/29/17 16:55 IRA [id number] 08/29/17 16:56 IRA 08/29/17 16:55 Wound Center Nurse 2 #1- RT BUTTOCK -Time 16:56 -Correct Patient Yes -Correct Side, Site, Position Yes -Correct Procedure Yes -Procedure Performed Yes -Type of Procedure Debridement -Clinical Debridement Subcutaneous -Post Debridement Size (cm) - Length 1.0 -Post Debridement Size (cm) - Width 0.5 -Post Debridement Size (cm) - Depth 0.2 -Total Square Cm 0.50 -Wound/Ulcer Outcome Not Healed -Ulcer Cleansing Rinsed/ Irrigated with Saline -Foul Odor after Cleansing No -Bioengineered Tissue No -Topical Lidocaine (%) 4 -Lidocaine (ml) 5 -Bleeding Controlled with NA -Treatment Response Procedure Tolerated Well Pain Scale: 0-10 Numeric Is Patient Pain Free? Yes Wound debrided: right buttock Laterality: Left No debridement was completed today - his wound is healed Assessment/Plan Active Problems Anemia (Chronic) Diabetes type 2, uncontrolled (Chronic) COPD (chronic obstructive pulmonary disease) (Chronic) Dementia (Chronic) Hearing deficit (Chronic) Pressure ulcer of left buttock, stage 3 (Chronic) Assessment: Decubitus ulcers stage III right buttocks. Healing wound. Chronic diarrhea. Diabetes type 2 uncontrolled. Anemia. malnutrition Plan: Misaels wound is healed. Will have his caregiver apply vaseline or A and D ointment to the area to protect the skin and advised them to call if his wound opens back up. Encouraged offloading and continued increased protein intake to prevent future pressure ulcers. F/U as needed.
--- NOTE | 2017-09-12 21:55 | PN.PCM_ITS ---
(1) Hearing deficit Status: Chronic Current Visit: Yes Qualifiers: Laterality: bilateral Qualified Code(s): H91.93 - Unspecified hearing loss , bilateral Code(s): H91.90 - Unspecified hearing loss, unspecified ear (2) Anemia Status: Chronic Current Visit: Yes Qualifiers: Anemia type: unspecified type Qualified Code(s): D64.9 - Anemia, unspecified Code(s): D64.9 - Anemia, unspecified (3) Diabetes type 2, uncontrolled Status: Chronic Current Visit: Yes Qualifiers: Diabetes mellitus snf insulin use: with associate civil engineer use Diabetes mellitus complication status: with unspecified complications Qualified Code(s) : E11.8 - Type 2 diabetes mellitus with unspecified complications; E11.65 - Type 2 diabetes mellitus with hyperglycemia; Z79.4 - call center dispatcher (current) use of insulin Code(s): E11.65 - Type 2 diabetes mellitus with hyperglycemia (4) COPD (chronic obstructive pulmonary disease) Status: Chronic Current Visit: Yes Qualifiers: COPD type: unspecified COPD Qualified Code(s): J44.9 - Chronic obstructive pulmonary disease, unspecified Code(s): J44.9 - Chronic obstructive pulmonary disease, unspecified (5) Dementia Status: Chronic Current Visit: Yes Qualifiers: Dementia type: Parkinson's disease Code(s): F03.90 - Unspecified dementia without behavioral disturbance (6) Pressure ulcer of left buttock, stage 3 Status: Chronic Current Visit: Yes Code(s): L89.323 - Pressure ulcer of left buttock, stage 3 Type of Wound Date of Service: 09/12/17 Chief Complaint: Left buttocks ulcer History of Wound: Amador is a 77-year-old white male who is very, very hard of hearing who is diabetic with chronic diarrhea and incontinence and developed a decubitus ulcer on his left buttocks cheek. Patient has been using a topical prescription antibiotic. Patient states 6 months it has been going on but saw the nurse practitioner primary care doctor 5 weeks ago. They have been trying for 3 months to get in to see someone that could take care of this ulcer. Patient walks but sits in his chair most of the day has a gel cushion but does not like it and is obese. Family prefers home health care if dressings need to be done daily. He is accompanied by his girlfriend/caregiver today. Progress of Wound: Ced has tolerated the dressings and his wound is healed today. He is using his gel cushion in both his wheelchair and recliner and is trying to get up more frequently. He is still having bowel issues but they are in the process on trying to take care of those issues. - Physical Exam Vital Signs Temp Pulse Resp BP 96.6 F L 79 16 134/71 H 09/12/17 14:41 09/12/17 14:41 09/12/17 14:41 09/12/17 14:41 General: Alert, Oriented x3, Cooperative, No apparent distress HEENT: Atraumatic, Normocephalic Oral: Moist Mucosa Abdomen: Obese Skin: Ulcer/ Wound Wound Measurements and Assessment WC - Nurse 1 - General Ulcer Measurement Start: 08/29/17 15:50 Freq: Status: Active Protocol: Activity Type Activity Date Activity User E-Sign Co-Sign Detail Recorded Client Recorded Date Recorded By Document 09/12/17 14:41 [id number] 09/12/17 14:45 09/12/17 14:41 Wound Center Nurse 1 [Ulcer Assessment] #1- RT BUTTOCK -Combined with other wound No -Current Size (cm) - Length 0 -Current Size (cm) - Width 0 -Current Size (cm) - Depth 0 -Total Square Cm 0 -Date of Last Picture (Recall this 09/12/17 field) -Photo Taken Yes -Epithelialization Large 67-100% -Exudate Amt None Present (0 %) -Wound Margin Flat & Intact -Granulation Amt Large (67-100%) -Granulation Quality [place] -Slough/Fibrin No -Necrosis Amt None Present (0 %) -Structure Exposed N/A -Texture (Bev-wound Skin Appearance) No Abnormality Assessed -Moisture (Bev-wound Skin Appearance No Abnormality ) Assessed -Color (Bev-wound Skin Appearance) No Abnormality Assessed -Temperature (Bev-wound Skin No Abnormality Appearance) (Pt Warm) -Tenderness on Palpation (Bev-wound No Skin Appearance) -Ulcer Cleansing Rinsed/ Irrigated with Saline -Foul Odor after Cleansing No [Edema Assessment] -Lower Limb Edema Present NA Psych/Mental Status: Normal Affect, Appropriate Debridement Note Post-Debridement Measurements/Treatment WC - Nurse 2 - General Ulcer CM Notes Start: 08/29/17 15:50 Freq: Status: Active Protocol: Activity Type Activity Date Activity User E-Sign Co-Sign Detail Recorded Client Recorded Date Recorded By Document 08/29/17 16:55 IRA [id number] 08/29/17 16:56 IRA 08/29/17 16:55 Wound Center Nurse 2 #1- RT BUTTOCK -Time 16:56 -Correct Patient Yes -Correct Side, Site, Position Yes -Correct Procedure Yes -Procedure Performed Yes -Type of Procedure Debridement -Clinical Debridement Subcutaneous -Post Debridement Size (cm) - Length 1.0 -Post Debridement Size (cm) - Width 0.5 -Post Debridement Size (cm) - Depth 0.2 -Total Square Cm 0.50 -Wound/Ulcer Outcome Not Healed -Ulcer Cleansing Rinsed/ Irrigated with Saline -Foul Odor after Cleansing No -Bioengineered Tissue No -Topical Lidocaine (%) 4 -Lidocaine (ml) 5 -Bleeding Controlled with NA -Treatment Response Procedure Tolerated Well Pain Scale: 0-10 Numeric Is Patient Pain Free? Yes Wound debrided: right buttock Laterality: Left No debridement was completed today - his wound is healed Assessment/Plan Active Problems Anemia (Chronic) Diabetes type 2, uncontrolled (Chronic) COPD (chronic obstructive pulmonary disease) (Chronic) Dementia (Chronic) Hearing deficit (Chronic) Pressure ulcer of left buttock, stage 3 (Chronic) Assessment: Decubitus ulcers stage III right buttocks. Healing wound. Chronic diarrhea. Diabetes type 2 uncontrolled. Anemia. malnutrition Plan: Misaels wound is healed. Will have his caregiver apply vaseline or A and D ointment to the area to protect the skin and advised them to call if his wound opens back up. Encouraged offloading and continued increased protein intake to prevent future pressure ulcers. F/U as needed.
== END 2017-09-27 23:59 ==
LOC: WC 14:30
PROVIDERS: Family Provider Nurse Practitioner Family; PCP Nurse Practitioner Family; Visit Provider Family Medicine
DX: E11.622 Type 2 diabetes mellitus with other skin ulcer (principal); L89.323 Pressure ulcer of left buttock, stage 3; J44.9 Chronic obstructive pulmonary disease, unspecified; G20 Parkinson's disease; F02.80 Dementia in other diseases classified elsewhere, unspecified severity, without behavioral disturbance, psychotic disturbance, mood disturbance, and anxiety; E11.65 Type 2 diabetes mellitus with hyperglycemia
CPT/HCPCS: 97597; 99212; G0463